=== PATIENT | male | born 1935 | race African-American/Black ===

== ENCOUNTER 2021-08-09 11:15 | Inpatient (IN) | payer MEDICARE ==
[2021-08-09 14:59] VITALS: BMI 27.8
[2021-08-09] MEDS ORDERED: NS 0.9% w/ 20 MEQ KCL 1,000 ML IV SCH (15:15)
[2021-08-09] MEDS ORDERED: Acetaminophen 325 MG TAB PO PRN (15:15)
[2021-08-09] MEDS ORDERED: Ondansetron PF 4 MG/2 ML Vial IVP PRN (16:12)
[2021-08-09] MEDS ORDERED: Calcium Carbonate 500 MG ChewTAB PO PRN (16:12)
[2021-08-09] MEDS ORDERED: Ondansetron ODT 4 MG TAB PO PRN (16:12)
[2021-08-09] MEDS ORDERED: Senokot S 8.6-50 MG TAB PO PRN (16:12)
[2021-08-09] MEDS ORDERED: Electrolyte Replacement Protocol 1 EACH FS SCH (16:30)
[2021-08-09] MEDS: Carvedilol 3.125 MG TAB PO SCH (17:39)
[2021-08-09] MEDS: NS 0.9% w/ 20 MEQ KCL 1,000 ML/1,000 ML BAG IV SCH (17:39)
[2021-08-09] MEDS ORDERED: Dextrose 5% in Water 1,000 ML IV PRN (18:27)
[2021-08-09] MEDS ORDERED: Dextrose 50% Abboject 50 ML SYRINGE SLOW IVP PRN (18:27)
[2021-08-09] MEDS ORDERED: Insulin Regular 300 UNITS/3 ML VIAL SC PRN ×2 (18:27)
[2021-08-09] MEDS: Cyanocobalamin (Vitamin B-12) 1,000 MCG TAB PO SCH (23:33)
[2021-08-09] MEDS: Folic Acid 1 MG TAB PO SCH (23:34)
[2021-08-09] MEDS: Multivit, Therapeutic 1 TAB PO SCH (23:34)
[2021-08-09] MEDS: Tamsulosin HCl 0.4 MG CAP PO SCH (23:34)
[2021-08-10] MEDS: Acetaminophen 325 MG TAB PO PRN (02:25)
[2021-08-10 07:09] LABS: Hemoglobin 9.2 g/dL (14.0-18.0); Mean Corpuscular HGB CONC 32.9 g/dL (32.0-36.0); Mean Corpuscular Hemoglobin 33.8 pg (27.0-31.0); Platelet Count 244 thou/uL (130-400); RBC Distribution Width 15.4 % (11.5-14.5); Red Blood Cell (RBC) Count 2.71 mill/uL (4.70-6.10); White Blood Cell (WBC) Count 13.3 thou/uL (4.8-10.8)
[2021-08-10 07:21] LABS: ALT (SGPT) 20 U/L (8-55); AST (SGOT) 12 U/L (5-34); Albumin 2.8 g/dL (3.4-4.8); Alkaline Phosphatase 94 U/L (40-110); Anion Gap 10 mmol/L (10-20); BUN (Urea Nitrogen) 29 mg/dL (8.4-25.7); Bilirubin, Total 0.7 mg/dL (0.2-1.2); Calc. Creatinine Clearance 54 mL/min (70-130); Calcium 8.4 mg/dL (7.8-10.44); Carbon Dioxide 26 mmol/L (23-31); Chloride 100 mmol/L (98-107); Globulin 3.2 g/dL (2.4-3.5); Glucose 135 mg/dL (83-110); Phosphorus 2.7 mg/dL (2.3-4.7); Potassium 3.2 mmol/L (3.5-5.1); Sodium 133 mmol/L (136-145)
[2021-08-10] MEDS ORDERED: Potassium Chloride 20 MEQ TAB PO SCH (08:00)
[2021-08-10] MEDS ORDERED: Magnesium 2 GM/50 ML 2 GM in Premix Bag 1 BAG IVPB SCH (08:00)
[2021-08-10 08:05] LABS: Band 28 % (5-11); Lymphocytes 8 % (21-51); MDiff Complete? YES; Metamyelocyte 1 % (0-0); Monocytes 12 % (0-10); Neutrophil 51 % (42-75); Platelet Morphology Comment Appears Adequate; Polychromasia SLIGHT = 2-3 cells (100X) (0-2/hpf)
[2021-08-10] MEDS ORDERED: Enoxaparin Sodium 40 MG/0.4 ML SYRINGE SC SCH (09:00)
[2021-08-10] MEDS ORDERED: cefTRIAXone\\ROCEPHIN 1 GM in Sodium Chloride 0.9% 100 ML IVPB SCH (09:00)
[2021-08-10] MEDS: NS 0.9% w/ 20 MEQ KCL 1,000 ML/1,000 ML BAG IV SCH (09:52)
[2021-08-10] MEDS: Finasteride 5 MG TAB PO SCH (09:54)
[2021-08-10] MEDS: Carvedilol 3.125 MG TAB PO SCH ×2 (09:54→18:10)
[2021-08-10] MEDS ORDERED: Piperacillin/Tazobactam 3.375 GM in Sodium Chloride 0.9% 100 ML IVPB SCH ×2 (12:53→13:00)
[2021-08-10] MEDS ORDERED: VANCOMYCIN 1.75 GM/350 ML BAG 1.75 GM in Premix Bag 1 BAG IVPB SCH (14:00)
[2021-08-10] MEDS: Piperacillin/Tazobactam 3.375 GM in Sodium Chloride 0.9% 100 ML IVPB SCH (18:07)
[2021-08-10] MEDS: Enoxaparin Sodium 40 MG/0.4 ML SYRINGE SC SCH (21:36)
[2021-08-10] MEDS: Folic Acid 1 MG TAB PO SCH (21:37)
[2021-08-10] MEDS: hydrALAZINE 20 MG/ML VIAL SLOW IVP PRN (21:37)
[2021-08-10] MEDS: Multivit, Therapeutic 1 TAB PO SCH (21:37)
[2021-08-10] MEDS: Cyanocobalamin (Vitamin B-12) 1,000 MCG TAB PO SCH (21:37)
[2021-08-10] MEDS: Tamsulosin HCl 0.4 MG CAP PO SCH (21:38)
[2021-08-11] MEDS: Piperacillin/Tazobactam 3.375 GM in Sodium Chloride 0.9% 100 ML IVPB SCH ×3 (00:59→16:16)
[2021-08-11] MEDS: hydrALAZINE 20 MG/ML VIAL SLOW IVP PRN ×2 (06:08→16:13)
[2021-08-11 06:36] LABS: Hemoglobin 9.5 g/dL (14.0-18.0); Mean Corpuscular HGB CONC 32.2 g/dL (32.0-36.0); Mean Platelet Volume 8.1 fL (7.4-10.4); Platelet Count 284 thou/uL (130-400); RBC Distribution Width 15.3 % (11.5-14.5); Red Blood Cell (RBC) Count 2.88 mill/uL (4.70-6.10); White Blood Cell (WBC) Count 13.5 thou/uL (4.8-10.8)
[2021-08-11 06:39] LABS: ALT (SGPT) 21 U/L (8-55); AST (SGOT) 16 U/L (5-34); Alkaline Phosphatase 102 U/L (40-110); Anion Gap 11 mmol/L (10-20); BUN (Urea Nitrogen) 22 mg/dL (8.4-25.7); Bilirubin, Total 0.7 mg/dL (0.2-1.2); Calc. Creatinine Clearance 56 mL/min (70-130); Calcium 8.7 mg/dL (7.8-10.44); Carbon Dioxide 25 mmol/L (23-31); Chloride 100 mmol/L (98-107); Globulin 3.3 g/dL (2.4-3.5); Glucose 154 mg/dL (83-110); Potassium 3.2 mmol/L (3.5-5.1); Protein, Total 6.3 g/dL (5.8-8.1); Sodium 133 mmol/L (136-145)
[2021-08-11 07:02] LABS: Thyroid Stimulating Hormone 0.9093 uIU/mL (0.35-4.94)
[2021-08-11] MEDS ORDERED: Potassium Chloride 20 MEQ TAB PO SCH (08:00)
[2021-08-11 08:29] LABS: Band 11 % (5-11); Lymphocytes 15 % (21-51); MDiff Complete? YES; Macrocytosis SLIGHT = 6-15 cells (100X) (0-5/hpf); Metamyelocyte 2 % (0-0); Monocytes 10 % (0-10); Myelocyte 2 % (0-0); Neutrophil 56 % (42-75); Platelet Morphology Comment Appears Adequate; Polychromasia SLIGHT = 2-3 cells (100X) (0-2/hpf); Reactive Lymphocytes 4 % (0-10)
[2021-08-11] MEDS: NS 0.9% w/ 20 MEQ KCL 1,000 ML/1,000 ML BAG IV SCH ×4 (08:41→20:43)
[2021-08-11] MEDS: Carvedilol 3.125 MG TAB PO SCH ×2 (08:41→16:15)
[2021-08-11] MEDS: Finasteride 5 MG TAB PO SCH (08:41)
[2021-08-11] MEDS ORDERED: Vancomycin 1.5 GRAM/300 ML BAG 1.5 GM in Premix Bag 1 BAG IVPB SCH (14:00)
[2021-08-11] MEDS: Acetaminophen 325 MG TAB PO PRN (16:14)
[2021-08-11] MEDS: Enoxaparin Sodium 40 MG/0.4 ML SYRINGE SC SCH (20:39)
[2021-08-11] MEDS: Folic Acid 1 MG TAB PO SCH (20:40)
[2021-08-11] MEDS: Cyanocobalamin (Vitamin B-12) 1,000 MCG TAB PO SCH (20:40)
[2021-08-11] MEDS: Tamsulosin HCl 0.4 MG CAP PO SCH (20:40)
[2021-08-11] MEDS: Multivit, Therapeutic 1 TAB PO SCH (20:40)
[2021-08-12] MEDS: Acetaminophen 325 MG TAB PO PRN (02:00)
[2021-08-12 08:19] VITALS: TEMP 97.9
[2021-08-12] MEDS: Finasteride 5 MG TAB PO SCH (09:38)
[2021-08-12] MEDS: Carvedilol 3.125 MG TAB PO SCH (09:39)
[2021-08-12] MEDS ORDERED: Amlodipine 5 MG TAB PO SCH (13:00)
[2021-08-12] MEDS: NS 0.9% w/ 20 MEQ KCL 1,000 ML/1,000 ML BAG IV SCH (13:50)
[2021-08-12 16:01] VITALS: BP 173/86
[2021-08-13] MEDS ORDERED: Amlodipine 5 MG TAB PO SCH (09:00)
== END 2021-08-12 16:59 | DRG 871 ==
LOC: T4-A 11:15
PROVIDERS: ADMIT Internal Medicine; ATTEND Internal Medicine
PROC: 0TJB8ZZ Inspection of Bladder, Via Natural or Artificial Opening Endoscopic (ICD-10-PCS; principal; 2021-08-09)
PROC: 3E03329 Introduction of Other Anti-infective into Peripheral Vein, Percutaneous Approach (ICD-10-PCS; 2021-08-09)
DX: A41.1 Sepsis due to other specified staphylococcus (principal); G92.8 Other toxic encephalopathy; N39.0 Urinary tract infection, site not specified; E87.1 Hypo-osmolality and hyponatremia; Z20.822 Contact with and (suspected) exposure to COVID-19; N40.0 Benign prostatic hyperplasia without lower urinary tract symptoms; E78.5 Hyperlipidemia, unspecified; M10.9 Gout, unspecified; F41.9 Anxiety disorder, unspecified; G31.84 Mild cognitive impairment of uncertain or unknown etiology; E87.6 Hypokalemia; N18.30 Chronic kidney disease, stage 3 unspecified; I12.9 Hypertensive chronic kidney disease with stage 1 through stage 4 chronic kidney disease, or unspecified chronic kidney disease; N35.919 Unspecified urethral stricture, male, unspecified site; E11.22 Type 2 diabetes mellitus with diabetic chronic kidney disease; R33.9 Retention of urine, unspecified; Z91.041 Radiographic dye allergy status; Z88.8 Allergy status to other drugs, medicaments and biological substances; Z79.899 Other long term (current) drug therapy; Z93.3 Colostomy status; Z98.890 Other specified postprocedural states
CPT/HCPCS: 36415; 36416; 80053; 82607; 82746; 83735; 84100; 84443; 85025; 87040; 93306; J0360; J0696; J1650; J1815; J2543; J3370; J3475; J3480; J3490